=== PATIENT | female | born 1960 | race African-American/Black ===

== ENCOUNTER 2016-12-26 14:03 | Emergency (ER) ==
[2016-12-26 14:11] VITALS: BP 173/88
--- NOTE | 2016-12-26 15:08 | PROVIDER DOCUMENTATION ---
HPI-General Adult <RosiCheyanne Diane - Last Filed: 12/26/16 15:13> - General Source: patient - History of Present Illness -Gen Adult Nature of Presenting Problems: patient is a 56 y/o F that presents with 4 to 5 days of sinus congestion and pressure with body aches and subjective fever. denies cough, headache, or n/v Location of Pain/Injury: reports: mouth Pain Radiation: reports: no radiation Quality of Pain: reports: pressure Severity: reports: mild Onset/Duration: reports: gradual, 4 days ago, 5 days ago Timing: reports: still present, constant Context/Activities at Onset: reports: none Modifying Factors: improves with: nothing Associated Symptoms: reports: muscle aches, sinus congestion/drainage. denies: back/neck pain, chest pain, diarrhea, fever/chills, genitourinary problems, nausea, vomiting Similar Symptoms Previously?: Yes Recently seen or treated by another doctor?: No <Angel Can - Last Filed: 12/26/16 15:36> - General Chief Complaint: Sinus Pain Stated Complaint: FLU SX Time Seen by Provider: 12/26/16 15:07 Allergies/Adverse Reactions: Patient Allergies Allergy/AdvReac Type Severity Reaction Status Date / Time No Known Allergies Allergy Verified 08/09/16 10:37 Home Medications: Home Medication List Medication Instructions Recorded Confirmed Last Taken Type Meloxicam [Mobic] 15 mg PO HS 05/12/15 08/09/16 08/08/16 History Pantoprazole [Protonix] 40 mg PO DAILY@0700 05/12/15 08/09/16 08/08/16 History Lisinopril/Hydrochlorothiazide 1 tab PO DAILY 05/31/15 08/09/16 08/08/16 History [Lisinopril-Hctz 20-25 mg Tab] Amoxicillin/Pot Clavulanate 875 mg PO Q12HR #14 tablet 08/09/16 Unknown Rx [Augmentin] Benzonatate [Tessalon] 100 mg PO TID PRN PRN #20 capsule 08/09/16 Unknown Rx Estradiol 0.1 mg PO DAILY 08/09/16 08/09/16 08/08/16 History Ibuprofen 600 mg PO Q8H PRN PRN #20 tablet 08/09/16 Unknown Rx Cephalexin [Keflex] 500 mg PO BID #14 capsule 10/24/16 Unknown Rx Methylprednisolone [Medrol Dosepak] 4 mg PO DIRECTED #1 package 10/24/16 Unknown Rx Mometasone Nasal [place] [Nasonex 1 spray MOLLY DAILY #1 bottle 12/26/16 Unknown Rx Nasal [place]] Sulfamethoxazole/Trimethoprim 1 each PO BID #14 tablet 12/26/16 Unknown Rx [Bactrim Ds Tablet] Review of Systems - Adult - REVIEW OF SYSTEMS - ADULT Constitutional: denies: chills, fever Eyes: denies: blurred vision, double vision, eye pain Ears, Nose, Mouth & Throat: reports: sinus problem, nose pain. denies: ear pain , throat pain, throat swelling Cardiovascular: denies: chest pain, edema, palpitations, syncope Respiratory: denies: cough, shortness of breath, wheezing Gastrointestinal: denies: abdominal pain, diarrhea, nausea, vomiting Genitourinary: reports: no symptoms reported Musculoskeletal: reports: no symptoms reported Integumentary: reports: no symptoms reported Neurological: reports: headache/migraines. denies: dizziness/vertigo, seizure, syncope Psychiatric: reports: no symptoms reported Endocrine: reports: no symptoms reported Hematologic/Lymphatic: reports: no symptoms reported Allergic/Immunologic: reports: no symptoms reported All Other Systems: Reviewed and Negative <Angel Can - Last Filed: 12/26/16 15:36> Past History - Adult - PAST MEDICAL HISTORY-ADULT Major Childhood Illnesses: reports: denies history Cardiovascular: reports: HTN Respiratory: reports: asthma Gastrointestinal: reports: GERD Obstetrical/Gynecological: reports: denies history Genitourinary: reports: denies history Musculoskeletal: reports: other (carpal tunnel ) Neurological: reports: denies history Endocrine/Immune: reports: denies history Other Conditions: reports: denies history - PRIOR SURGERIES/PROCEDURES Surgical/Procedure History: reports: hysterectomy - PRIOR HOSPITALIZATIONS Prior Hospitalizations: reports: none - IMMUNIZATION STATUS Childhood Immunizations: See Nurse Assessment Flu Vaccine: See Nurse Assessment - FAMILY HISTORY Family History: reviewed, not pertinent <Cheyanne Aranda - Last Filed: 12/26/16 15:13> - PAST MEDICAL HISTORY-ADULT Review of Records: reports: Old Records Reviewed, Nursing Assessment Review, Medications Reviewed Cardiovascular: reports: HTN Respiratory: reports: asthma Gastrointestinal: reports: GERD Musculoskeletal: reports: other (carpal tunnel) - PRIOR SURGERIES/PROCEDURES Surgical/Procedure History: reports: hysterectomy, orthopedic (extremity) - IMMUNIZATION STATUS Childhood Immunizations: See Nurse Assessment Flu Vaccine: See Nurse Assessment - FAMILY HISTORY Family History: reviewed, not pertinent - SOCIAL HISTORY Smoking: cigarettes, less than 1 pack/day Living Situation: family <Angel Can - Last Filed: 12/26/16 15:36> Physical Exam-General - PHYSICAL EXAM-ADULT Initial Vital Signs Reviewed: Yes - CONSTITUTIONAL General Appearance: appears well, alert, no apparent distress - EYES Eyes: PERRL/EOMI, pink conjunctivae - HEAD, EARS, NOSE, MOUTH & THROAT HENMT: normocephalic/atraumatic, TMs normal, frontal tenderness, maxillary tenderness. negative: pharyngeal erythema, tonsillar exudate - NECK Neck: non-tender, full range of motion, supple. negative: lymphadenopathy - RESPIRATORY Respiratory: chest non-tender, lungs clear, normal breath sounds - CARDIOVASCULAR Cardiovascular: regular rate, rhythm, no edema - GASTROINTESTINAL (ABDOMEN) Abdominal Exam: normal bowel sounds, non tender, soft - MUSCULOSKELETAL Back Exam: normal inspection, no CVA tenderness, no vertebral tenderness Extremity: normal gait, normal inspection - SKIN Integumentary: normal color, normal turgor, warm/dry. negative: rash - NEUROLOGIC Neurologic: grossly normal, no motor/sensory deficits - PSYCHIATRIC Psych/Mental Status: normal thought content, normal thought process <Cheyanne Aranda - Last Filed: 12/26/16 15:13> Progress - PLAN OF CARE/RESULTS Progress/Plan/Lab Results: Vital Signs Temp Pulse Resp BP Pulse Ox 12/26/16 14:08 97.8 F 86 20 173/88 100 No Known Allergies Allergy (Verified 08/09/16 10:37) Meloxicam [Mobic] 15 mg PO HS 05/12/15 Pantoprazole [Protonix] 40 mg PO DAILY@0700 05/12/15 Lisinopril/Hydrochlorothiazide [Lisinopril-Hctz 20-25 mg Tab] 1 tab PO DAILY Amoxicillin/Pot Clavulanate [Augmentin] 875 mg PO Q12HR #14 tablet 08/09/16 Benzonatate [Tessalon] 100 mg PO TID PRN PRN #20 capsule 08/09/16 Estradiol 0.1 mg PO DAILY 08/09/16 Ibuprofen 600 mg PO Q8H PRN PRN #20 tablet 08/09/16 Cephalexin [Keflex] 500 mg PO BID #14 capsule 10/24/16 Methylprednisolone [Medrol Dosepak] 4 mg PO DIRECTED #1 package 10/24/16 Orders Category Date Time Status CefTRIAXONE [Rocephin] Med 12/26/16 15:14 Once 1 gm IM NOW ONE Dexamethasone [Decadron] Med 12/26/16 15:14 Once 10 mg IM NOW ONE Lidocaine 1% Pf [Xylocaine-Mpf 1%] Med 12/26/16 15:14 Once 5 ml INJ NOW ONE <Cheyanne Aranda - Last Filed: 12/26/16 15:13> Departure - Departure Time of Disposition Order: 15:14 Certified Medical Emergency: Emergent <Cheyanne Aranda - Last Filed: 12/26/16 15:13> <Angel Can - Last Filed: 12/26/16 15:36> - Departure DIAGNOSIS: Sinusitis, acute Qualifiers: Sinusitis location: frontal Recurrence: non-recurrent Qualified Code(s): J01.10 - Acute frontal sinusitis, unspecified Disposition: HOME 01 Condition: Good Additional Instructions: ED Follow Up Instructions: You have been treated by a care provider in the Emergency Department. These instructions are being provided to you so you can have an understanding of how to care for yourself upon discharge. Upon discharge from the Emergency Department, you are responsible for making arrangements for follow-up care by a physician of your choice. Take all prescribed medications as directed. Return to the Emergency Department immediately for any new or worsening symptoms. You may call the Physician Referral phone number at [phone] to obtain a list of Physicians who are taking new patients. Prescriptions: Sulfamethoxazole/Trimethoprim [Bactrim Ds Tablet] 1 each PO BID #14 tablet Mometasone Nasal [place] [Nasonex Nasal [place]] 1 spray MOLLY DAILY #1 bottle Referrals: Marleny Henderson MD [Primary Care Provider] - Forms: Return to School/Parent Work Instructions: Sinusitis, [id number], Mometasone nasal spray, Sulfamethoxazole ; Trimethoprim, [id number] tablets Attestation - Physician/ BIRGIT Attestation Patient care was provided by Advanced Practice Provider:: Yes Advanced Practice Provider:: Cheyanne Aranda Advanced Practice Provider documentation review:: The Mid-level provider documentation, treatment plan and medical decision making was reviewed by the physician who agrees with all treatment and medical decision making by the MLP. <Cheyanne Aranda - Last Filed: 12/26/16 15:13> - Scribe Verification/Attestation Scribe:: Angel Can Acting as Scribe for:: Cheyanne Aranda Scribe documention review:: This chart was documented by a scribe and accurately reflects the service the provider performed and the decisions made by the provider. - Physician/ BIRGIT Attestation Patient care was provided by Advanced Practice Provider:: Yes Advanced Practice Provider:: Cheyanne Aranda Advanced Practice Provider documentation review:: The Mid-level provider documentation, treatment plan and medical decision making was reviewed by the physician who agrees with all treatment and medical decision making by the MLP. <Angel Can - Last Filed: 12/26/16 15:36> Physician Attestation - Physician Attestation I, the provider, attest to the following statement:: Cheyanne Aranda Physician documentation Attestation:: This documentation recorded by the scribe accurately reflects the service I personally performed and the decisions made by me. <Cheyanne Aranda - Last Filed: 12/26/16 15:13> - Physician Attestation I, the provider, attest to the following statement:: Cheyanne Aranda Physician documentation Attestation:: This documentation recorded by the scribe accurately reflects the service I personally performed and the decisions made by me. <Angel Can - Last Filed: 12/26/16 15:36>
[2016-12-26] MEDS ORDERED: DECADRON IM ONE (15:14)
[2016-12-26] MEDS ORDERED: ROCEPHIN IM ONE (15:14)
[2016-12-26] MEDS ORDERED: XYLOCAINE-MPF 1% INJ ONE (15:14)
[2016-12-26] MEDS ORDERED: DECADRON ONE (15:18)
== END 2016-12-26 15:28 | disposition home or self-care (01) ==
LOC: P.ED 14:03
DX: J01.10 Acute frontal sinusitis, unspecified (principal); R09.81 Nasal congestion; J34.89 Other specified disorders of nose and nasal sinuses; R51 Headache; I10 Essential (primary) hypertension; K21.9 Gastro-esophageal reflux disease without esophagitis; F17.210 Nicotine dependence, cigarettes, uncomplicated; Z79.899 Other long term (current) drug therapy; Z79.1 Long term (current) use of non-steroidal anti-inflammatories (NSAID)
CPT/HCPCS: 96372; J0696